=== PATIENT | male | born 1960 | race African-American/Black ===

== ENCOUNTER 2020-05-10 10:24 | Emergency (ER) | payer BC ==
[~2020-05-10] VITALS: Ht 175.3 cm; Wt 65.3 kg
[~2020-05-10 10:24] MED LIST: ACCUPRIL40 MG PO; ADULT LOW DOSE81 MG PO; AMBIEN 10 MG TA10 MG PO; AMBIEN 5 MG TABL5 M1 PO; DOCUSATE SODIU100 MG PO; HYDROCHLOROTHIA25 M2 PO; METFORMIN HCL500 MG PO; OMEPRAZOLE 20 M20 MG PO; PROSCAR 5MG TABL5 MG PO; QUINAPRIL 20 MG20 MG; SIMVASTATIN20 MG PO; TAMSULOSIN HCL0.4 MG PO; TOPROL XL50 MG PO; TYLENOL325 MG PO; VITAMIN D1000 UNI1 PO; vitamin d
[2020-05-10] MEDS ORDERED: DULCOLAX STOOL100 M1 PO (11:23)
[2020-05-10] MEDS ORDERED: QUINAPRIL 20 MG20 MG PO (11:25)
[2020-05-10 12:40] VITALS: BP 117/76
== END 2020-05-10 12:41 | disposition home or self-care (01) ==
LOC: ER 10:24
DX: R51 Headache (principal); I10 Essential (primary) hypertension; E11.9 Type 2 diabetes mellitus without complications; E78.5 Hyperlipidemia, unspecified; Z79.899 Other long term (current) drug therapy; Z79.82 Long term (current) use of aspirin; Z88.8 Allergy status to other drugs, medicaments and biological substances